=== PATIENT | female | born 1980 | race Two or more races ===

== ENCOUNTER 2017-08-30 08:42 | Inpatient (IN) | payer OTHER ==
[2017-08-30 10:24] VITALS: BMI 17.5
--- NOTE | 2017-08-30 14:00 | HP ---
Admission ROS [facility] - [facility] Chief Complaint: I NEED HELP TO COME IN FOR REHAB FROM HEROIN METHADONE ,COCAINE,MARIJUANA, METHADONE MAINTENANCE 40 MGS/DAY,LAST MEDICATED 08/20/17 HEPATITIS C FOLLOW UP WITH [facility] WEIGHT LOSS NICOTINE DEPENDENCE DEPRESSION NON COMPLIANCE WITH MEDICATION NO SIGNIFICANT PERIOD OF SOBRIETY Allergies/Adverse Reactions: Allergies Allergy/AdvReac Type Severity Reaction Status Date / Time aspirin Allergy Severe Rash Verified 08/29/17 14:17 History of Present Illness: THIS 36 YEARS OLD FEMALE WITH LONG STANDING DRUG DEPENDENCE FOR REHAB PLEASE SEE THE CHIEF COMPLAINT Exam Limitations: No Limitations - Ebola screening Have you traveled outside of the country in the last 21 days: No Have you been sick,other than usual withdrawal symptoms: No - Review of Systems Constitutional: No Symptoms Reported EENT: reports: No Symptoms Reported Respiratory: reports: Other (ASTHMA) Cardiac: reports: No Symptoms Reported GI: reports: Nausea : reports: No Symptoms Reported Musculoskeletal: reports: Back Pain, Joint Pain, Muscle Pain Integumentary: reports: No Symptoms Reported Neuro: reports: No Symptoms reported Endocrine: reports: No Symptoms Reported Hematology: reports: No Symptoms Reported Psychiatric: reports: No Sypmtoms Reported, Judgement Intact (DEPRESSION), Mood/ Affect Appropiate, Orientated x3 Patient History - Patient Medical History Hx Anemia: No Hx Asthma: Yes (ON ALBUTEROL INHALER) Hx Chronic Obstructive Pulmonary Disease (COPD): No Hx Cancer: No Hx Cardiac Disorders: No Hx Congestive Heart Failure: No Hx Hypertension: No Hx Hypercholesterolemia: No Hx Pacemaker: No HX Cerebrovascular Accident: No Hx Seizures: No Hx Dementia: No Hx Diabetes: No Hx Gastrointestinal Disorders: No Hx Liver Disease: No Hx Genitourinary Disorders: No Hx Sexually Transmitted Disorders: No Hx Renal Disease (ESRD): No Hx Thyroid Disease: No Hx Human Immunodeficiency Virus (HIV): No (LAST 03/13 NEGATIVE) Hx Hepatitis C: Yes (FOLLO UP WITH CLINIC AT [facility]) Hx Depression: Yes (NO MED) Hx Suicide Attempt: Yes (AGE 20 HANG HERSELF,AGE 23 OVERDOSE) Other Medical History: NO SUICIDAL,NO HOMICIDAL - Patient Surgical History Past Surgical History: No - PPD History Previous Implant?: Yes Documented Results: Negative w/o proof Implanted On Prior [facility] Admission?: No PPD to be Administered?: Yes - Reproductive History Patient is a Female of Child Bearing Age (11 -55 yrs old): Yes Patient : No - Smoking Cessation Smoking history: Current every day smoker Have you smoked in the past 12 months: Yes Aproximately how many cigarettes per day: 20 Cigars Per Day: 0 Hx Chewing Tobacco Use: No Initiated information on smoking cessation: Yes 'Breaking Loose' booklet given: 08/30/17 - Substance & Tx. History Hx Alcohol Use: No Hx Substance Use: Yes Substance Use Type: Cocaine, Heroin, Marijuana Hx Substance Use Treatment: No - Substances Abused Benzodiazepine (Klonopin) Route: Oral Frequency: Daily Amount used: 2MG Age of first use: 34 Date of Last Use: 08/28/17 Crack Route: Smoking Frequency: Daily Amount used: $100 Age of first use: 14 Date of Last Use: 08/27/17 Marijuana/Hashish Route: Smoking Frequency: Daily Amount used: $50 Age of first use: 12 Date of Last Use: 08/28/17 Heroin Route: Injection Frequency: Daily Amount used: 10 BAGS Age of first use: 20 Date of Last Use: 08/27/17 Family Disease History - Family Disease History Family History: Denies Admission Physical Exam [facility] - Vital Signs Vital Signs: Vital Signs - 24 hr 08/30/17 10:11 Temperature 95.9 F L Pulse Rate 79 Respiratory 16 Rate Blood Pressure 127/82 - Physical General Appearance: Yes: Within Normal Limits HEENTM: Yes: Normal ENT Inspection, Normocephalic, BALTAZAR Respiratory: Yes: Lungs Clear, Normal Breath Sounds, No Respiratory Distress Neck: Yes: Within Normal Limits, Supple, Trachea in good position Breast: Yes: Breast Exam Deferred Cardiology: Yes: Within Normal Limits, Regular Rhythm, Regular Rate, S1, S2 Abdominal: Yes: Within Normal Limits, Normal Bowel Sounds, Non Tender, Soft Genitourinary: Yes: Within Normal Limits Back: Yes: Within Normal Limits Musculoskeletal: Yes: Within Normal Limits Extremities: Yes: Within Normal Limits, Normal Inspection, Normal Range of Motion Neurological: Yes: Within Normal Limits, restaurant recruiter II-XII NML intact, Alert, Motor Strength 5/5 Integumentary: Yes: Within Normal Limits Lymphatic: Yes: Within Normal Limits - Diagnostic (1) Opioid dependence Current Visit: Yes Status: Acute (2) Methadone maintenance therapy patient Current Visit: Yes Status: Acute (3) Cocaine dependence Current Visit: Yes Status: Acute (4) Cannabis dependence Current Visit: Yes Status: Acute (5) Hepatitis C Current Visit: Yes Status: Acute (6) Weight loss Current Visit: Yes Status: Acute (7) Asthma Current Visit: Yes Status: Acute (8) Depression Current Visit: Yes Status: Acute Cleared for Admission [facility] - Detox or Rehab Claeared for Rehab Admission: Yes [facility] Breath Alcohol Content Breath Alcohol Content: 0 Urine Pregancy Test - Result Urine Test Results: Negative- NO Line Present Urine Drug Screen - Results Drug Screen Negative: No Urine Drug Screen Results: THC-Marijuana, CELESTE-Cocaine, OPI-Opiates, MTD- Methadone Inpatient Rehab Admission - Initial Determination Are CD services needed?: Yes Free of communicable disease: Yes Not in need of hospitalization: Yes - Rehab Admission Criteria Poor recovery environment: Yes Patient is meeting Inpatient Rehab admission criteria:: Yes
[2017-08-30] MEDS ORDERED: MAGNESIUM CITRATE 300 ML BOTTLE PO PRN (14:18)
[2017-08-30] MEDS ORDERED: P-EPHED 60MG/TRIPROLIDI 2.5MG TABLET PO PRN (14:18)
[2017-08-30] MEDS ORDERED: guaiFENesin/D-METHORPHAN HB 10 ML UNIT-DOSE CUPS PO PRN (14:18)
[2017-08-30] MEDS ORDERED: hydrOXYzine PAMOATE 25 MG CAPSULE (FP) PO PRN (14:18)
[2017-08-30] MEDS ORDERED: MAGNESIUM HYDROX 2400MG/30ML ORAL SUSPENSION 30 ML CUP PO PRN (14:18)
[2017-08-30] MEDS ORDERED: MAG HYDROX/AL HYDROX/SIMETH 30 ML UNIT-DOSE CUP PO PRN (14:18)
[2017-08-30] MEDS ORDERED: LOPERAMIDE HCL 2 MG CAPSULE PO PRN (14:18)
[2017-08-30] MEDS ORDERED: MENTHOL/PHENOL 1 EACH UD MM PRN (14:18)
[2017-08-30] MEDS ORDERED: ALBUTEROL SO4 18 GM HFA INHALER IH PRN (14:22)
[2017-08-30] MEDS ORDERED: METHADONE HCL 10 MG TABLET PO ONE (14:34)
[2017-08-30] MEDS ORDERED: PNEUMOC 13-VAL CONJ-DIP CRM/PF 0.5 ML DISP.SYRIN IM ONE (15:06)
[2017-08-30] MEDS: NICOTINE 21 MG/24 HOURS TOPICAL PATCH TD SCH (15:15)
--- NOTE | 2017-08-30 15:56 | HP ---
Psychiatrist Admission - Data Date of interview: 08/30/17 Admission source: [facility] Identifying data: This is the first admission to [address] [place] [address] [facility] for this 36 years old female Medical History: Significant for Hep Cristine,BA. Psychiatric History: Patient reports long history oif Bipolar disorder.She started to see a psychiatrist since 16 years old.She reports 2 psychiatric hospitalizations,2 suicidal attempts in the past.She was on different medications including Prozac,Zoloft,Depakote,Risperidone,Klonopin,Seroquel.She stopped to see a psychiatrist about 1 year ago.Patient is willing to restart Seroquel 50 mg po hs and Neurontin 100 mg po tid. will monitor progress. Physical/Sexual Abuse/Trauma History: denies Vital Signs: Vital Signs - 24 hr 08/30/17 08/30/17 10:11 14:52 Temperature 95.9 F L 98.3 F Pulse Rate 79 89 Respiratory 16 16 Rate Blood Pressure 127/82 113/72 Allergies/Adverse Reactions: Allergies Allergy/AdvReac Type Severity Reaction Status Date / Time aspirin Allergy Severe Rash Verified 08/29/17 14:17 Date of last physical exam: 08/29/17 Concur with the findings of this exam: Yes - Substance Abuse/Tx History Hx Alcohol Use: Yes (drinking socially on and off) Hx Substance Use: Yes (marijuana since 12 yo,heroin since 20 yo,crack/cocaine since 14 yo) Substance Use Type: Alcohol, Cocaine, Heroin, Marijuana Hx Substance Use Treatment: Yes (completed [facility] inpatient about 5 years ago) Mental Status Exam - Mental Status Exam Alert and Oriented to: Time, Place, Person Cognitive Function: Grossly Intact Patient Appearance: Well Groomed Mood: Sad Affect: Mood Congruent Patient Behavior: Cooperative Speech Pattern: Clear Voice Loudness: Normal Thought Process: Goal Oriented Thought Disorder: Not Present Hallucinations: Denies Suicidal Ideation: Denies Homicidal Ideation: Denies Insight/Judgement: Fair Sleep: Fair Appetite: Fair Muscle strength/Tone: Normal Gait/Station: Normal Psychiatric Findings - Problem List (Lewellen 1, 2,3) (1) Asthma Current Visit: Yes Status: Chronic (2) Cannabis dependence Current Visit: Yes Status: Chronic (3) Cocaine dependence Current Visit: Yes Status: Chronic (4) Hepatitis C Current Visit: Yes Status: Chronic (5) Methadone maintenance therapy patient Current Visit: Yes Status: Chronic (6) Opioid dependence Current Visit: Yes Status: Chronic (7) Bipolar disorder Current Visit: Yes Status: Chronic - Initial Treatment Plan Initial Treatment Plan: Seroquel 50 mg po hs,Neurontin 100 mg po tid. Will monitor progress.
[2017-08-30 16:49] LABS: MCH 27.6 pg (25.7-33.7); MCHC 34.1 g/dl (32.0-36.0); MEAN CELL VOLUME 81.1 fl (80-96); MEAN PLT VOLUME 9.7 fl (7.5-11.1); PLATELET COUNT 185 K/MM3 (134-434); RDW 15.6 % (11.6-15.6); WHITE BLOOD COUNT 5.7 K/mm3 (4.0-10.0)
[2017-08-30 17:00] LABS: ALBUMIN 3.8 g/dl (3.4-5.0); ALK PHOS 76 U/L (45-117); ANION GAP 11 (8-16); BILIRUBIN,TOTAL 0.2 mg/dL (0.2-1.0); CALCIUM 9.3 mg/dL (8.5-10.1); CO2 27 mmol/L (21-32); CREATININE 0.7 mg/dL (0.55-1.02); GLUCOSE,RANDOM 77 mg/dL (74-106); SGOT/AST 25 U/L (15-37); SGPT/ALT 26 U/L (12-78); TOT PROT 7.9 g/dl (6.4-8.2)
[2017-08-30] MEDS: GABAPENTIN 100 MG CAPSULE (FP) PO SCH ×2 (17:55→21:54)
[2017-08-30 21:02] LABS: URINE APPEARANCE SLCLOUDY; URINE BILIRUBIN NEGATIVE (NEGATIVE); URINE BLOOD NEGATIVE (NEGATIVE); URINE COLOR YELLOW; URINE GLUCOSE (UA) NEGATIVE (NEGATIVE); URINE KETONE NEGATIVE (NEGATIVE); URINE LEUK ESTERASE NEGATIVE (NEGATIVE); URINE NITRITE NEGATIVE (NEGATIVE); URINE PROTEIN NEGATIVE (NEGATIVE); URINE UROBILINOGEN NEGATIVE mg/dL (0.2-1.0)
[2017-08-30] MEDS: THIAMINE HCL 100 MG TABLET (FP) PO SCH (21:54)
[2017-08-30] MEDS: QUEtiapine FUMARATE 50 MG TABLET PO SCH (21:54)
[2017-08-31] MEDS ORDERED: METHADONE HCL 10 MG TABLET PO ONE (06:00)
[2017-08-31] MEDS: GABAPENTIN 100 MG CAPSULE (FP) PO SCH ×3 (06:36→21:37)
[2017-08-31] MEDS: PRENATAL VITAMINS W/ FOLIC ACID TABLET (FP) PO SCH (10:22)
[2017-08-31] MEDS: NICOTINE 21 MG/24 HOURS TOPICAL PATCH TD SCH (10:24)
[2017-08-31 11:48] LABS: HIV 1 & 2 AB NEGATIVE; HIV 1 AGp24 NEGATIVE
[2017-08-31] MEDS ORDERED: FLU VACCINE QUAD 60 MCG/0.5 ML (MDV 17-18) IM ONE (12:00)
[2017-08-31] MEDS ORDERED: PNEUMOCOCCAL 23 VACCINE 0.5 ML VIAL IM ONE (12:00)
--- NOTE | 2017-08-31 12:46 | PN ---
S Progress Note Note: patient requesting methadone decrease, will decrease by 10mg every 3 days as tolerated by patient
--- NOTE | 2017-08-31 12:51 | PN ---
Kd Progress Note Note: patient c/o vaginal discharge and athletes foot started monistat and tinactin. advised to increase methadone by 10mg every 3 days until comfortable and no signs of withdrawal or craving
[2017-08-31] MEDS: TOLNAFTATE 1% CREAM 15 GM TUBE TP SCH ×2 (13:11→21:39)
--- NOTE | 2017-08-31 14:22 | EKG ---
Test Reason : Blood Pressure : / mmHG Vent. Rate : 091 BPM Atrial Rate : 091 BPM P-R Int : 130 ms QRS Dur : 076 ms QT Int : 326 ms P-R-T Axes : 081 084 076 degrees QTc Int : 400 ms NORMAL SINUS RHYTHM WITH SINUS ARRHYTHMIA NORMAL ECG NO PREVIOUS ECGS AVAILABLE Confirmed by NATALEE KELLEY, SILVIA ([id number]) on 08/31/2017 2:22:39 PM Referred By: Confirmed By:SILVIA ALBRIGHT MD
[2017-08-31] MEDS: QUEtiapine FUMARATE 50 MG TABLET PO SCH (21:37)
[2017-08-31] MEDS: THIAMINE HCL 100 MG TABLET (FP) PO SCH (21:37)
[2017-08-31] MEDS: MICONAZOLE NITRATE 100 MG SUPP SUPP.VAG PV SCH (21:38)
[2017-09-01] MEDS ORDERED: METHADONE HCL 10 MG TABLET PO ONE (06:00)
[2017-09-01] MEDS: GABAPENTIN 100 MG CAPSULE (FP) PO SCH ×3 (06:37→21:52)
[2017-09-01] MEDS: PRENATAL VITAMINS W/ FOLIC ACID TABLET (FP) PO SCH (10:59)
[2017-09-01] MEDS: TOLNAFTATE 1% CREAM 15 GM TUBE TP SCH ×2 (10:59→21:53)
[2017-09-01] MEDS: NICOTINE 21 MG/24 HOURS TOPICAL PATCH TD SCH (10:59)
[2017-09-01] MEDS: QUEtiapine FUMARATE 50 MG TABLET PO SCH (21:52)
[2017-09-01] MEDS: THIAMINE HCL 100 MG TABLET (FP) PO SCH (21:52)
[2017-09-01] MEDS: diphenhydrAMINE HCL 50 MG CAPSULE PO PRN (21:52)
[2017-09-01] MEDS: MICONAZOLE NITRATE 100 MG SUPP SUPP.VAG PV SCH (21:53)
[2017-09-01] MEDS ORDERED: PT OWN MED DRAWER 7, Y5N ONE (23:30)
[2017-09-02] MEDS: GABAPENTIN 100 MG CAPSULE (FP) PO SCH ×3 (06:55→21:54)
[2017-09-02] MEDS: METHADONE HCL 40 MG DISPERSABLE TABLET PO SCH (06:55)
[2017-09-02] MEDS: TOLNAFTATE 1% CREAM 15 GM TUBE TP SCH ×2 (10:20→21:55)
[2017-09-02] MEDS: NICOTINE 21 MG/24 HOURS TOPICAL PATCH TD SCH (10:20)
[2017-09-02] MEDS: PRENATAL VITAMINS W/ FOLIC ACID TABLET (FP) PO SCH (10:20)
[2017-09-02] MEDS: diphenhydrAMINE HCL 50 MG CAPSULE PO PRN (21:54)
[2017-09-02] MEDS: THIAMINE HCL 100 MG TABLET (FP) PO SCH (21:54)
[2017-09-02] MEDS: QUEtiapine FUMARATE 50 MG TABLET PO SCH (21:54)
[2017-09-02] MEDS ORDERED: PT OWN MED DRAWER 7, Y5N ONE (21:57)
[2017-09-02] MEDS: MICONAZOLE NITRATE 100 MG SUPP SUPP.VAG PV SCH (21:57)
[2017-09-03] MEDS: GABAPENTIN 100 MG CAPSULE (FP) PO SCH ×3 (07:04→21:48)
[2017-09-03] MEDS: METHADONE HCL 40 MG DISPERSABLE TABLET PO SCH (07:04)
[2017-09-03] MEDS: NICOTINE 21 MG/24 HOURS TOPICAL PATCH TD SCH (10:32)
[2017-09-03] MEDS: PRENATAL VITAMINS W/ FOLIC ACID TABLET (FP) PO SCH (10:33)
[2017-09-03] MEDS: TOLNAFTATE 1% CREAM 15 GM TUBE TP SCH ×2 (10:33→21:49)
[2017-09-03] MEDS ORDERED: PT OWN MED DRAWER 7, Y5N ONE (19:33)
[2017-09-03] MEDS: QUEtiapine FUMARATE 50 MG TABLET PO SCH (21:48)
[2017-09-03] MEDS: THIAMINE HCL 100 MG TABLET (FP) PO SCH (21:48)
[2017-09-03] MEDS: MICONAZOLE NITRATE 100 MG SUPP SUPP.VAG PV SCH (21:48)
[2017-09-03] MEDS: diphenhydrAMINE HCL 50 MG CAPSULE PO PRN (21:49)
[2017-09-04] MEDS: GABAPENTIN 100 MG CAPSULE (FP) PO SCH ×3 (06:55→21:51)
[2017-09-04] MEDS: METHADONE HCL 40 MG DISPERSABLE TABLET PO SCH (06:55)
[2017-09-04] MEDS ORDERED: PT OWN MED DRAWER 7, Y5N ONE ×3 (09:09→22:25)
[2017-09-04] MEDS: PRENATAL VITAMINS W/ FOLIC ACID TABLET (FP) PO SCH (11:00)
[2017-09-04] MEDS: NICOTINE 21 MG/24 HOURS TOPICAL PATCH TD SCH (11:00)
[2017-09-04] MEDS: TOLNAFTATE 1% CREAM 15 GM TUBE TP SCH ×2 (11:01→21:45)
[2017-09-04] MEDS: MICONAZOLE NITRATE 100 MG SUPP SUPP.VAG PV SCH (21:50)
[2017-09-04] MEDS: THIAMINE HCL 100 MG TABLET (FP) PO SCH (21:51)
[2017-09-04] MEDS: diphenhydrAMINE HCL 50 MG CAPSULE PO PRN (21:51)
[2017-09-04] MEDS: QUEtiapine FUMARATE 50 MG TABLET PO SCH (21:51)
[2017-09-05] MEDS: METHADONE HCL 40 MG DISPERSABLE TABLET PO SCH (06:44)
[2017-09-05] MEDS: GABAPENTIN 100 MG CAPSULE (FP) PO SCH ×3 (06:45→21:43)
[2017-09-05] MEDS: NICOTINE 21 MG/24 HOURS TOPICAL PATCH TD SCH (10:58)
[2017-09-05] MEDS: TOLNAFTATE 1% CREAM 15 GM TUBE TP SCH ×2 (10:59→21:45)
[2017-09-05] MEDS: PRENATAL VITAMINS W/ FOLIC ACID TABLET (FP) PO SCH (10:59)
[2017-09-05] MEDS ORDERED: PT OWN MED DRAWER 7, Y5N ONE (19:49)
[2017-09-05] MEDS: THIAMINE HCL 100 MG TABLET (FP) PO SCH (21:43)
[2017-09-05] MEDS: QUEtiapine FUMARATE 50 MG TABLET PO SCH (21:43)
[2017-09-05] MEDS: diphenhydrAMINE HCL 50 MG CAPSULE PO PRN (21:44)
[2017-09-05] MEDS: MICONAZOLE NITRATE 100 MG SUPP SUPP.VAG PV SCH (21:44)
[2017-09-06] MEDS: METHADONE HCL 40 MG DISPERSABLE TABLET PO SCH (06:37)
[2017-09-06] MEDS: GABAPENTIN 100 MG CAPSULE (FP) PO SCH ×3 (06:37→21:58)
[2017-09-06] MEDS: TOLNAFTATE 1% CREAM 15 GM TUBE TP SCH ×2 (10:55→22:30)
[2017-09-06] MEDS: NICOTINE 21 MG/24 HOURS TOPICAL PATCH TD SCH (10:55)
[2017-09-06] MEDS: PRENATAL VITAMINS W/ FOLIC ACID TABLET (FP) PO SCH (10:55)
[2017-09-06] MEDS ORDERED: PT OWN MED DRAWER 7, Y5N ONE ×2 (21:06→23:10)
[2017-09-06] MEDS: THIAMINE HCL 100 MG TABLET (FP) PO SCH (21:58)
[2017-09-06] MEDS: QUEtiapine FUMARATE 50 MG TABLET PO SCH (21:58)
[2017-09-06] MEDS: diphenhydrAMINE HCL 50 MG CAPSULE PO PRN (21:58)
[2017-09-06] MEDS: MICONAZOLE NITRATE 100 MG SUPP SUPP.VAG PV SCH (21:58)
[2017-09-07] MEDS: GABAPENTIN 100 MG CAPSULE (FP) PO SCH ×3 (06:39→21:58)
[2017-09-07] MEDS: METHADONE HCL 40 MG DISPERSABLE TABLET PO SCH (06:39)
[2017-09-07] MEDS ORDERED: PT OWN MED DRAWER 7, Y5N ONE (09:09)
[2017-09-07] MEDS: PRENATAL VITAMINS W/ FOLIC ACID TABLET (FP) PO SCH (10:43)
[2017-09-07] MEDS: TOLNAFTATE 1% CREAM 15 GM TUBE TP SCH ×2 (10:43→22:00)
[2017-09-07] MEDS: NICOTINE 21 MG/24 HOURS TOPICAL PATCH TD SCH (10:43)
[2017-09-07] MEDS: QUEtiapine FUMARATE 50 MG TABLET PO SCH (21:58)
[2017-09-07] MEDS: THIAMINE HCL 100 MG TABLET (FP) PO SCH (21:58)
[2017-09-07] MEDS: MICONAZOLE NITRATE 100 MG SUPP SUPP.VAG PV SCH (21:58)
[2017-09-07] MEDS: diphenhydrAMINE HCL 50 MG CAPSULE PO PRN (21:59)
[2017-09-08] MEDS: METHADONE HCL 40 MG DISPERSABLE TABLET PO SCH (06:48)
[2017-09-08] MEDS: GABAPENTIN 100 MG CAPSULE (FP) PO SCH ×3 (06:49→22:06)
[2017-09-08] MEDS: NICOTINE 21 MG/24 HOURS TOPICAL PATCH TD SCH (10:52)
[2017-09-08] MEDS: PRENATAL VITAMINS W/ FOLIC ACID TABLET (FP) PO SCH (10:52)
[2017-09-08] MEDS: TOLNAFTATE 1% CREAM 15 GM TUBE TP SCH ×2 (10:53→22:05)
[2017-09-08] MEDS: ACETAMINOPHEN 325 MG TABLET (FP) PO PRN (10:54)
[2017-09-08] MEDS ORDERED: PT OWN MED DRAWER 7, Y5N ONE (20:06)
[2017-09-08] MEDS: MICONAZOLE NITRATE 100 MG SUPP SUPP.VAG PV SCH (22:06)
[2017-09-08] MEDS: QUEtiapine FUMARATE 50 MG TABLET PO SCH (22:06)
[2017-09-08] MEDS: THIAMINE HCL 100 MG TABLET (FP) PO SCH (22:06)
[2017-09-08] MEDS: diphenhydrAMINE HCL 50 MG CAPSULE PO PRN (22:08)
[2017-09-09] MEDS: GABAPENTIN 100 MG CAPSULE (FP) PO SCH ×3 (07:01→21:54)
[2017-09-09] MEDS: METHADONE HCL 40 MG DISPERSABLE TABLET PO SCH (07:01)
[2017-09-09] MEDS: NICOTINE 21 MG/24 HOURS TOPICAL PATCH TD SCH (10:37)
[2017-09-09] MEDS: PRENATAL VITAMINS W/ FOLIC ACID TABLET (FP) PO SCH (10:37)
[2017-09-09] MEDS: TOLNAFTATE 1% CREAM 15 GM TUBE TP SCH ×2 (10:38→21:35)
[2017-09-09] MEDS: THIAMINE HCL 100 MG TABLET (FP) PO SCH (21:54)
[2017-09-09] MEDS: diphenhydrAMINE HCL 50 MG CAPSULE PO PRN (21:54)
[2017-09-09] MEDS: QUEtiapine FUMARATE 50 MG TABLET PO SCH (21:54)
[2017-09-09] MEDS: MICONAZOLE NITRATE 100 MG SUPP SUPP.VAG PV SCH (21:55)
[2017-09-10] MEDS: METHADONE HCL 40 MG DISPERSABLE TABLET PO SCH (07:01)
[2017-09-10] MEDS: GABAPENTIN 100 MG CAPSULE (FP) PO SCH ×3 (07:01→21:45)
[2017-09-10] MEDS ORDERED: PT OWN MED DRAWER 7, Y5N ONE (08:46)
[2017-09-10] MEDS: PRENATAL VITAMINS W/ FOLIC ACID TABLET (FP) PO SCH (10:23)
[2017-09-10] MEDS: TOLNAFTATE 1% CREAM 15 GM TUBE TP SCH ×2 (10:23→21:30)
[2017-09-10] MEDS: NICOTINE 21 MG/24 HOURS TOPICAL PATCH TD SCH (10:24)
[2017-09-10] MEDS: THIAMINE HCL 100 MG TABLET (FP) PO SCH (21:45)
[2017-09-10] MEDS: QUEtiapine FUMARATE 50 MG TABLET PO SCH (21:45)
[2017-09-10] MEDS: diphenhydrAMINE HCL 50 MG CAPSULE PO PRN (21:45)
[2017-09-10] MEDS: MICONAZOLE NITRATE 100 MG SUPP SUPP.VAG PV SCH (22:05)
[2017-09-11] MEDS: METHADONE HCL 40 MG DISPERSABLE TABLET PO SCH (06:56)
[2017-09-11] MEDS: GABAPENTIN 100 MG CAPSULE (FP) PO SCH ×3 (06:56→21:39)
[2017-09-11] MEDS ORDERED: PT OWN MED DRAWER 7, Y5N ONE (08:35)
[2017-09-11] MEDS: PRENATAL VITAMINS W/ FOLIC ACID TABLET (FP) PO SCH (10:19)
[2017-09-11] MEDS: NICOTINE 21 MG/24 HOURS TOPICAL PATCH TD SCH (10:19)
[2017-09-11] MEDS: TOLNAFTATE 1% CREAM 15 GM TUBE TP SCH ×2 (10:19→21:41)
[2017-09-11] MEDS: MAG HYDROX/ALH/SMC/DPHA/LIDO 240 ML MOUTHWASH MM SCH (18:40)
[2017-09-11] MEDS: QUEtiapine FUMARATE 50 MG TABLET PO SCH (21:39)
[2017-09-11] MEDS: diphenhydrAMINE HCL 50 MG CAPSULE PO PRN (21:39)
[2017-09-11] MEDS: THIAMINE HCL 100 MG TABLET (FP) PO SCH (21:39)
[2017-09-11] MEDS: MICONAZOLE NITRATE 100 MG SUPP SUPP.VAG PV SCH (21:40)
[2017-09-12] MEDS: MAG HYDROX/ALH/SMC/DPHA/LIDO 240 ML MOUTHWASH MM SCH ×4 (00:34→22:05)
[2017-09-12] MEDS ORDERED: PT OWN MED DRAWER 7, Y5N ONE ×3 (03:40→22:09)
[2017-09-12] MEDS: METHADONE HCL 40 MG DISPERSABLE TABLET PO SCH (06:42)
[2017-09-12] MEDS: GABAPENTIN 100 MG CAPSULE (FP) PO SCH ×3 (06:42→22:03)
[2017-09-12] MEDS: PRENATAL VITAMINS W/ FOLIC ACID TABLET (FP) PO SCH (10:49)
[2017-09-12] MEDS: NICOTINE 21 MG/24 HOURS TOPICAL PATCH TD SCH (10:50)
[2017-09-12] MEDS: TOLNAFTATE 1% CREAM 15 GM TUBE TP SCH ×2 (10:51→22:05)
[2017-09-12] MEDS: QUEtiapine FUMARATE 50 MG TABLET PO SCH (22:03)
[2017-09-12] MEDS: MICONAZOLE NITRATE 100 MG SUPP SUPP.VAG PV SCH (22:04)
[2017-09-12] MEDS: THIAMINE HCL 100 MG TABLET (FP) PO SCH (22:05)
[2017-09-12] MEDS: diphenhydrAMINE HCL 50 MG CAPSULE PO PRN (22:06)
[2017-09-13] MEDS: MAG HYDROX/ALH/SMC/DPHA/LIDO 240 ML MOUTHWASH MM SCH ×4 (00:36→18:30)
[2017-09-13] MEDS: METHADONE HCL 40 MG DISPERSABLE TABLET PO SCH (06:48)
[2017-09-13] MEDS: GABAPENTIN 100 MG CAPSULE (FP) PO SCH ×3 (06:49→22:13)
[2017-09-13] MEDS: TOLNAFTATE 1% CREAM 15 GM TUBE TP SCH ×2 (11:00→22:15)
[2017-09-13] MEDS: PRENATAL VITAMINS W/ FOLIC ACID TABLET (FP) PO SCH (11:00)
[2017-09-13] MEDS: NICOTINE 21 MG/24 HOURS TOPICAL PATCH TD SCH (11:01)
[2017-09-13] MEDS: diphenhydrAMINE HCL 50 MG CAPSULE PO PRN (22:13)
[2017-09-13] MEDS: QUEtiapine FUMARATE 50 MG TABLET PO SCH (22:13)
[2017-09-13] MEDS: THIAMINE HCL 100 MG TABLET (FP) PO SCH (22:13)
[2017-09-13] MEDS: MICONAZOLE NITRATE 100 MG SUPP SUPP.VAG PV SCH (22:15)
[2017-09-14] MEDS: MAG HYDROX/ALH/SMC/DPHA/LIDO 240 ML MOUTHWASH MM SCH ×4 (00:55→18:30)
[2017-09-14] MEDS: GABAPENTIN 100 MG CAPSULE (FP) PO SCH ×3 (06:37→21:53)
[2017-09-14] MEDS: METHADONE HCL 40 MG DISPERSABLE TABLET PO SCH (06:37)
[2017-09-14] MEDS: TOLNAFTATE 1% CREAM 15 GM TUBE TP SCH ×2 (10:48→21:40)
[2017-09-14] MEDS: NICOTINE 21 MG/24 HOURS TOPICAL PATCH TD SCH (10:48)
[2017-09-14] MEDS: PRENATAL VITAMINS W/ FOLIC ACID TABLET (FP) PO SCH (10:48)
[2017-09-14] MEDS: diphenhydrAMINE HCL 50 MG CAPSULE PO PRN (21:53)
[2017-09-14] MEDS: THIAMINE HCL 100 MG TABLET (FP) PO SCH (21:53)
[2017-09-14] MEDS: QUEtiapine FUMARATE 50 MG TABLET PO SCH (21:53)
[2017-09-14] MEDS: MICONAZOLE NITRATE 100 MG SUPP SUPP.VAG PV SCH (21:55)
[2017-09-15] MEDS: MAG HYDROX/ALH/SMC/DPHA/LIDO 240 ML MOUTHWASH MM SCH ×4 (01:27→18:00)
[2017-09-15] MEDS: GABAPENTIN 100 MG CAPSULE (FP) PO SCH ×3 (06:49→22:03)
[2017-09-15] MEDS: METHADONE HCL 40 MG DISPERSABLE TABLET PO SCH (06:50)
[2017-09-15] MEDS ORDERED: PT OWN MED DRAWER 7, Y5N ONE ×3 (08:59→22:06)
[2017-09-15] MEDS: NICOTINE 21 MG/24 HOURS TOPICAL PATCH TD SCH (11:12)
[2017-09-15] MEDS: PRENATAL VITAMINS W/ FOLIC ACID TABLET (FP) PO SCH (11:12)
[2017-09-15] MEDS: TOLNAFTATE 1% CREAM 15 GM TUBE TP SCH ×2 (11:13→22:05)
[2017-09-15] MEDS: THIAMINE HCL 100 MG TABLET (FP) PO SCH (22:03)
[2017-09-15] MEDS: diphenhydrAMINE HCL 50 MG CAPSULE PO PRN (22:03)
[2017-09-15] MEDS: QUEtiapine FUMARATE 50 MG TABLET PO SCH (22:03)
[2017-09-15] MEDS: MICONAZOLE NITRATE 100 MG SUPP SUPP.VAG PV SCH (22:04)
[2017-09-16] MEDS: MAG HYDROX/ALH/SMC/DPHA/LIDO 240 ML MOUTHWASH MM SCH ×5 (00:35→23:43)
[2017-09-16] MEDS: METHADONE HCL 40 MG DISPERSABLE TABLET PO SCH (06:56)
[2017-09-16] MEDS: GABAPENTIN 100 MG CAPSULE (FP) PO SCH ×3 (06:56→21:54)
[2017-09-16] MEDS: TOLNAFTATE 1% CREAM 15 GM TUBE TP SCH ×2 (10:20→21:54)
[2017-09-16] MEDS: PRENATAL VITAMINS W/ FOLIC ACID TABLET (FP) PO SCH (10:21)
[2017-09-16] MEDS: NICOTINE 21 MG/24 HOURS TOPICAL PATCH TD SCH (10:21)
[2017-09-16] MEDS: diphenhydrAMINE HCL 50 MG CAPSULE PO PRN (21:54)
[2017-09-16] MEDS: QUEtiapine FUMARATE 50 MG TABLET PO SCH (21:54)
[2017-09-16] MEDS: THIAMINE HCL 100 MG TABLET (FP) PO SCH (21:54)
[2017-09-16] MEDS: MICONAZOLE NITRATE 100 MG SUPP SUPP.VAG PV SCH (21:54)
[2017-09-17] MEDS: METHADONE HCL 40 MG DISPERSABLE TABLET PO SCH (06:48)
[2017-09-17] MEDS: GABAPENTIN 100 MG CAPSULE (FP) PO SCH ×3 (06:48→21:54)
[2017-09-17] MEDS ORDERED: PT OWN MED DRAWER 7, Y5N ONE ×3 (06:49→18:50)
[2017-09-17] MEDS: MAG HYDROX/ALH/SMC/DPHA/LIDO 240 ML MOUTHWASH MM SCH ×3 (06:49→17:00)
[2017-09-17] MEDS: NICOTINE 21 MG/24 HOURS TOPICAL PATCH TD SCH (09:36)
[2017-09-17] MEDS: TOLNAFTATE 1% CREAM 15 GM TUBE TP SCH ×2 (09:37→21:55)
[2017-09-17] MEDS: PRENATAL VITAMINS W/ FOLIC ACID TABLET (FP) PO SCH (09:39)
[2017-09-17] MEDS: THIAMINE HCL 100 MG TABLET (FP) PO SCH (21:54)
[2017-09-17] MEDS: diphenhydrAMINE HCL 50 MG CAPSULE PO PRN (21:55)
[2017-09-17] MEDS: QUEtiapine FUMARATE 50 MG TABLET PO SCH (21:55)
[2017-09-17] MEDS: MICONAZOLE NITRATE 100 MG SUPP SUPP.VAG PV SCH (22:06)
[2017-09-18] MEDS: MAG HYDROX/ALH/SMC/DPHA/LIDO 240 ML MOUTHWASH MM SCH ×4 (00:41→18:30)
[2017-09-18] MEDS: GABAPENTIN 100 MG CAPSULE (FP) PO SCH ×3 (06:45→22:16)
[2017-09-18] MEDS: METHADONE HCL 40 MG DISPERSABLE TABLET PO SCH (06:45)
[2017-09-18] MEDS ORDERED: PT OWN MED DRAWER 7, Y5N ONE ×3 (08:29→23:30)
[2017-09-18] MEDS: TOLNAFTATE 1% CREAM 15 GM TUBE TP SCH ×2 (11:01→22:19)
[2017-09-18] MEDS: NICOTINE 21 MG/24 HOURS TOPICAL PATCH TD SCH (11:01)
[2017-09-18] MEDS: PRENATAL VITAMINS W/ FOLIC ACID TABLET (FP) PO SCH (11:01)
--- NOTE | 2017-09-18 12:30 | PN ---
[facility] Progress Note Note: discharge not imporved after 7 days monistat, will give metrogel x7 days. d/w patient
[2017-09-18] MEDS ORDERED: QUEtiapine FUMARATE 25 MG TABLET (FP) ONE (19:37)
[2017-09-18] MEDS: THIAMINE HCL 100 MG TABLET (FP) PO SCH (22:16)
[2017-09-18] MEDS: metroNIDAZOLE 0.75% VAGINAL GEL 70 GM TUBE VG SCH (22:17)
[2017-09-18] MEDS: MICONAZOLE NITRATE 100 MG SUPP SUPP.VAG PV SCH (22:17)
[2017-09-18] MEDS: QUEtiapine FUMARATE 50 MG TABLET PO SCH (22:19)
[2017-09-18] MEDS: diphenhydrAMINE HCL 50 MG CAPSULE PO PRN (22:19)
[2017-09-19] MEDS: MAG HYDROX/ALH/SMC/DPHA/LIDO 240 ML MOUTHWASH MM SCH ×4 (00:05→18:30)
[2017-09-19] MEDS: MICONAZOLE NITRATE 100 MG SUPP SUPP.VAG PV SCH (00:20)
[2017-09-19] MEDS ORDERED: PT OWN MED DRAWER 7, Y5N ONE ×2 (05:50→23:41)
[2017-09-19] MEDS: METHADONE HCL 40 MG DISPERSABLE TABLET PO SCH (06:47)
[2017-09-19] MEDS: GABAPENTIN 100 MG CAPSULE (FP) PO SCH ×3 (06:47→21:58)
[2017-09-19 07:28] VITALS: TEMP 97.9
[2017-09-19] MEDS: NICOTINE 21 MG/24 HOURS TOPICAL PATCH TD SCH (10:41)
[2017-09-19] MEDS: PRENATAL VITAMINS W/ FOLIC ACID TABLET (FP) PO SCH (10:41)
[2017-09-19] MEDS: TOLNAFTATE 1% CREAM 15 GM TUBE TP SCH ×2 (10:41→22:00)
[2017-09-19] MEDS: ACETAMINOPHEN 325 MG TABLET (FP) PO PRN (12:29)
[2017-09-19] MEDS: metroNIDAZOLE 0.75% VAGINAL GEL 70 GM TUBE VG SCH (21:45)
[2017-09-19] MEDS: QUEtiapine FUMARATE 50 MG TABLET PO SCH (21:58)
[2017-09-19] MEDS: diphenhydrAMINE HCL 50 MG CAPSULE PO PRN (21:58)
[2017-09-19] MEDS: THIAMINE HCL 100 MG TABLET (FP) PO SCH (21:58)
[2017-09-20] MEDS: MAG HYDROX/ALH/SMC/DPHA/LIDO 240 ML MOUTHWASH MM SCH ×2 (00:19→06:57)
[2017-09-20] MEDS: METHADONE HCL 40 MG DISPERSABLE TABLET PO SCH (06:56)
[2017-09-20] MEDS: GABAPENTIN 100 MG CAPSULE (FP) PO SCH (06:56)
[2017-09-20 07:28] VITALS: BP 93/60; PULSE 86
[2017-09-20] MEDS ORDERED: PT OWN MED DRAWER 7, Y5N ONE (08:54)
--- NOTE | 2017-09-20 09:17 | PN ---
Psychiatric Progress Note Vital Signs: Vital Signs Period Temp Pulse Resp BP Sys/Cohen Pulse Ox Last 24 Hr 97.9 F 86 16-18 93/60 Date of Session: 09/20/17 Chief Complaint:: Discharge visit Current Medications: Active Medications Generic Name Dose Route Start Last Admin Trade Name Freq PRN Reason Stop Dose Admin Acetaminophen 650 mg 08/30/17 14:18 09/19/17 12:29 Tylenol - PO 650 mg Q4H PRN Administration PAIN Al Hydroxide/Mg Hydroxide 30 ml 08/30/17 14:18 Mylanta Oral Suspension - PO Q6H PRN DYSPEPSIA Albuterol Sulfate 2 puff 08/30/17 14:22 Ventolin Hfa Inhaler - IH Q4H PRN SHORT OF BREATH/WHEEZING Diphenhydramine HCl 50 mg 08/30/17 14:18 09/19/17 21:58 Benadryl - PO 50 mg HSMR1 PRN Administration INSOMNIA Eucalyptus/Menthol/Phenol/Sorbitol 1 each 08/30/17 14:18 Cepastat Lozenge - MM Q4H PRN SORE THROAT Gabapentin 100 mg 08/30/17 16:00 09/20/17 06:56 Neurontin - PO 100 mg TID [facility] Administration Guaifenesin 10 ml 08/30/17 14:18 Robitussin Dm - PO Q6H PRN COUGH Hydroxyzine Pamoate 25 mg 08/30/17 14:18 Vistaril - PO Q4H PRN AGITATION Lidocaine/Aluminum/Magnesium/Simeth 5 ml 09/11/17 18:00 09/20/17 06:57 Magic Mouthwash *[facility] Formula* - MM Not Given Q6HPO [facility] Loperamide HCl 4 mg 08/30/17 14:18 Imodium - PO Q6H PRN DIARRHEA Magnesium Citrate 300 ml 08/30/17 14:18 Citroma - PO Q48H PRN CONSTIPATION Magnesium Hydroxide 30 ml 08/30/17 14:18 Milk Of Magnesia - PO DAILY PRN CONSTIPATION Methadone HCl 40 mg 09/14/17 06:00 09/20/17 06:56 Dolophine - PO 40 mg DAILY@0600 [facility] Administration Metronidazole 1 applic 09/18/17 22:00 09/19/17 21:45 Metrogel 0.75% Vaginal Gel - VG 09/22/17 22:01 1 applic HS YENNI Administration Miconazole Nitrate 100 mg 08/31/17 22:00 09/19/17 00:20 Monistat-7 Vaginal Suppository - PV Not Given HS YENNI Nicotine 21 mg 08/30/17 14:30 09/19/17 10:41 Nicoderm Patch - TD Not Given DAILY YENNI Multivit/Folic Acid/Iron 1 tab 08/31/17 10:00 09/19/17 10:41 Vitamins ([facility]) - PO 1 tab DAILY YENNI Administration Pseudoephedrine/Triprolidine 1 combo 08/30/17 14:18 Actifed - PO TID PRN NASAL CONGESTION Quetiapine Fumarate 50 mg 08/30/17 22:00 09/19/17 21:58 Seroquel - PO 50 mg HS YENNI Administration Thiamine HCl 100 mg 08/30/17 22:00 09/19/17 21:58 Vitamin B1 - PO 100 mg HS YENNI Administration Tolnaftate 1 applic 08/31/17 12:45 09/19/17 22:00 Tinactin 1% Cream - TP Not Given BID YENNI Current Side Effect: No Lab tests ordered: No Lab tests reviewed: Yes Provider note:: Patient completed this program.She has met her treatment goals and will continue to address her issues on outpatient basis at Patient reports finding Total face to face time:: 30 Psychiatric Treatment Plan - Problem List (1) Asthma Current Visit: Yes (2) Cannabis dependence Current Visit: Yes (3) Cocaine dependence Current Visit: Yes (4) Hepatitis C Current Visit: Yes (5) Methadone maintenance therapy patient Current Visit: Yes (6) Opioid dependence Current Visit: Yes (7) Bipolar disorder Current Visit: Yes
[2017-09-20] MEDS: PRENATAL VITAMINS W/ FOLIC ACID TABLET (FP) PO SCH (09:55)
[2017-09-20] MEDS: NICOTINE 21 MG/24 HOURS TOPICAL PATCH TD SCH (09:55)
[2017-09-20] MEDS: TOLNAFTATE 1% CREAM 15 GM TUBE TP SCH (09:55)
== END 2017-09-20 10:02 | disposition home or self-care (01) | DRG 772 ==
LOC: YASAS 08:42 → Y3E 13:55
PROVIDERS: ADMIT Psychiatry & Neurology Psychiatry; ATTEND Psychiatry & Neurology Psychiatry
PROC: HZ42ZZZ Group Counseling for Substance Abuse Treatment, Cognitive-Behavioral (ICD-10-PCS; principal; 2017-08-30)
DX: F11.20 Opioid dependence, uncomplicated (principal); F14.20 Cocaine dependence, uncomplicated; F12.20 Cannabis dependence, uncomplicated; F17.210 Nicotine dependence, cigarettes, uncomplicated; F31.9 Bipolar disorder, unspecified; F32.9 Major depressive disorder, single episode, unspecified; J45.909 Unspecified asthma, uncomplicated; B18.2 Chronic viral hepatitis C; B35.3 Tinea pedis; N89.8 Other specified noninflammatory disorders of vagina; Z88.6 Allergy status to analgesic agent; Z87.898 Personal history of other specified conditions; Z91.5 Personal history of self-harm
CPT/HCPCS: 36415; 80053; 81003; 85027; 86593; 87389; 90688; 90732; 93005; 93010; G0009